=== PATIENT | female | born 1995 | race Caucasian/White ===

== ENCOUNTER 2018-06-25 10:42 | Outpatient (CLI) | payer OTHER ==
[2018-06-25 11:16] LABS: INR 2.5 (0.8-1.2); PT - PROTHROMBIN TIME 27.6 secs (9.9-12.6)
== END 2018-06-25 10:43 | disposition home or self-care (01) ==
LOC: LAB 10:42
PROVIDERS: ATTEND Emergency Medicine
DX: I74.9 Embolism and thrombosis of unspecified artery (principal); I82.409 Acute embolism and thrombosis of unspecified deep veins of unspecified lower extremity
CPT/HCPCS: 36415; 85610

== ENCOUNTER 2018-06-26 13:15 | Outpatient (CLI) | payer OTHER ==
[2018-06-26 14:05] LABS: INR 2.4 (0.8-1.2); PT - PROTHROMBIN TIME 25.9 secs (9.9-12.6)
== END 2018-06-26 13:16 | disposition home or self-care (01) ==
LOC: LAB 13:15
PROVIDERS: ATTEND Emergency Medicine
DX: I82.409 Acute embolism and thrombosis of unspecified deep veins of unspecified lower extremity (principal)
CPT/HCPCS: 36415; 85610